=== PATIENT | male | born 1955 ===

== ENCOUNTER 2021-12-24 13:55 | Inpatient (IN) | payer OTHER ==
[~2021-12-24] VITALS: Ht 165.1 cm; Wt 105.3 kg
[2021-12-24 15:38] LABS: COVID AG,FIA SOURCE NASAL SWAB
[2021-12-24 15:38] LABS: BASOPHILS % (AUTO) 0.3 % (0.0-2.0); HEMATOCRIT 40.3 % (41-53); HEMOGLOBIN 13.3 g/dL (13.5-17.5); LYMPHOCYTES # (AUTO) 0.9 K/uL (1.0-4.8); LYMPHOCYTES % (AUTO) 14.8 % (22.0-44.0); MEAN CORPUSCULAR HEMOGLOBIN 31.7 pg (26.0-34.0); MEAN CORPUSCULAR VOLUME 96 fL (80-100); MONOCYTES # (AUTO) 0.4 K/uL (0.1-1.0); MONOCYTES % (AUTO) 5.7 % (2.0-9.0); NEUTROPHILS # (AUTO) 4.8 K/uL (1.8-7.7); NEUTROPHILS % (AUTO) 77.2 % (40.0-70.0); PLATELET COUNT (AUTO) 150 K/uL (150-450); RED CELL DISTRIBUTION WIDTH 13.4 % (11.5-14.5)
[2021-12-24 15:48] LABS: CALCIUM, TOTAL 9.5 mg/dL (8.8-10.5); CHLORIDE 97 mmol/L (98-107); CREATININE 0.77 mg/dL (0.60-1.30); GLUCOSE,RANDOM 124 mg/dL (70-110); POTASSIUM 4.7 mmol/L (3.5-5.1); SODIUM SERUM 142 mmol/L (136-145); UREA NITROGEN, BLOOD 22 mg/dL (7-18)
[2021-12-24 15:51] LABS: INR 0.9 (0.9-1.1); PROTHROMBIN TIME 10.1 SEC (9.4-11.6)
[2021-12-24 15:53] LABS: ALANINE AMINOTRANSFERASE 46 U/L (12-78); ALBUMIN 3.2 g/dL (3.4-5.0); ALKALINE PHOSPHATASE 89 U/L (46-116); ASPARTATE AMINOTRANSFERASE 29 U/L (15-37); BILIRUBIN,TOTAL 0.3 mg/dL (0.1-1.0); TOTAL PROTEIN, SERUM 7.3 g/dL (6.4-8.2)
[2021-12-24 15:54] LABS: B-TYPE NATRIURETIC PEPTIDE 32 pg/mL (0-100)
[2021-12-24 16:05] LABS: INFLUENZA TYPE A NEGATIVE FOR TYPE A (NEGATIVE); INFLUENZA TYPE B NEGATIVE FOR TYPE B (NEGATIVE)
[2021-12-24 16:05] LABS: ANION GAP -4 mmol/L (8-16); GLOMERULAR FILTR. RATE CALC > 60 mL/min (>60)
[2021-12-24 16:07] LABS: CARBON DIOXIDE 49 mmol/L (22-29)
[2021-12-24] MEDS ORDERED: REMDESIVIR 200 MG in SODIUM CHLORIDE 0.9% 250 ML IV ONE (16:30)
[2021-12-24] MEDS ORDERED: DEXTROSE 50%-WATER 25 GM/50 ML SYRINGE IVP PRN (16:30)
[2021-12-24] MEDS ORDERED: INSULIN LISPRO 100 UNITS/ML SQ PRN (16:30)
[2021-12-24 16:52] LABS: D-DIMER 0.69 mg/L FEU (0.00-0.50)
[2021-12-24 17:12] LABS: ABG CARBOXYHEMOGLOBIN 0.7 % (0.0-1.5); ABG HCO3 43.6 mmol/L (22.0-26.0); ABG METHEMOGLOBIN 0.2 % (0.0-1.5); ABG OXYGEN CONTENT 19.5 mL/dL (15.0-23.0); ABG OXYHEMOGLOBIN 97.1 % (94.0-100.0); ABG PCO2 103 mmHg (35-45); ABG PH 7.313 (7.35-7.450); ABG TOTAL HEMOGLOBIN 14.2 G/dL (12.0-18.0); PO2, ARTERIAL BG 111.8 mmHg (79.0-87.0); SOURCE, BLOOD GAS ARTERIAL; TEMPERATURE, FAHRENHEIT, BG 98.2 FAHREN (96.0-98.6)
[2021-12-24] MEDS: DEXAMETHASONE SOD PHOS 4 MG/ML VIAL IVP SCH (17:12)
[2021-12-24] MEDS: LISINOPRIL 10 MG TABLET PO SCH (17:12)
[2021-12-24 17:13] LABS: O2 DEVICE,BLOOD GAS NON REBREATHER (ROOM AIR); SITE, BLOOD GAS LFT BRACHIAL
[2021-12-24 17:17] LABS: C-REACTIVE PROTEIN QUANT 3.26 mg/dL (0.00-0.30)
[2021-12-24] MEDS ORDERED: PRED-729 PO (18:54)
[2021-12-24] MEDS ORDERED: ATOR20TA86 PO (18:54)
[2021-12-24] MEDS ORDERED: INSU100V SQ (18:54)
[2021-12-24] MEDS ORDERED: LISI-893 PO (18:54)
[2021-12-24] MEDS ORDERED: NIRM1TAB5 PO (18:54)
[2021-12-24] MEDS ORDERED: ZINC220C14 PO (18:54)
[2021-12-24] MEDS ORDERED: CHOL25TA4 PO (18:54)
[2021-12-24] MEDS ORDERED: BUME1TAB34 PO (18:54)
[2021-12-24] MEDS ORDERED: DOCU-385 PO (18:54)
[2021-12-24] MEDS ORDERED: MULT-660 PO (18:54)
[2021-12-24] MEDS ORDERED: METO50 PO (18:54)
[2021-12-24] MEDS ORDERED: POLY17PO47 PO (18:54)
[2021-12-24] MEDS ORDERED: SENN8.6T20 PO (18:54)
[2021-12-24] MEDS ORDERED: PANT-31 PO (18:54)
[2021-12-24] MEDS ORDERED: ASCO500 PO (18:54)
[2021-12-24] MEDS ORDERED: QUET25TA PO (18:54)
[2021-12-24] MEDS: DOCUSATE SODIUM 100 MG CAPSULE PO SCH (20:46)
[2021-12-24] MEDS: FAMOTIDINE 20 MG TABLET PO SCH (20:46)
[2021-12-24] MEDS: ATORVASTATIN CALCIUM 20 MG TABLET PO SCH (20:46)
[2021-12-25 00:11] VITALS: BP 129/73
[2021-12-25] MEDS: HEPARIN SODIUM,PORCINE 5,000 UNITS/ML VIAL SQ SCH ×4 (01:02→16:00)
[2021-12-25 06:32] VITALS: BP 134/72
[2021-12-25 08:37] VITALS: BP 159/92
[2021-12-25] MEDS: DEXAMETHASONE SOD PHOS 4 MG/ML VIAL IVP SCH (09:16)
[2021-12-25] MEDS: ASPIRIN 81 MG CHEWABLE TABLET PO SCH (09:17)
[2021-12-25] MEDS: LISINOPRIL 10 MG TABLET PO SCH (09:17)
[2021-12-25] MEDS: FAMOTIDINE 20 MG TABLET PO SCH ×2 (09:17→20:06)
[2021-12-25] MEDS: DOCUSATE SODIUM 100 MG CAPSULE PO SCH ×2 (09:17→20:06)
[2021-12-25 10:58] VITALS: BP 164/87
[2021-12-25 14:46] LABS: ALANINE AMINOTRANSFERASE 37 U/L (12-78); ALBUMIN 3.1 g/dL (3.4-5.0); ALKALINE PHOSPHATASE 79 U/L (46-116); ASPARTATE AMINOTRANSFERASE 24 U/L (15-37); BILIRUBIN,TOTAL 0.2 mg/dL (0.1-1.0); CALCIUM, TOTAL 9.2 mg/dL (8.8-10.5); CHLORIDE 99 mmol/L (98-107); CREATININE 0.73 mg/dL (0.60-1.30); GLUCOSE,RANDOM 173 mg/dL (70-110); POTASSIUM 4.7 mmol/L (3.5-5.1); SODIUM SERUM 142 mmol/L (136-145); TOTAL PROTEIN, SERUM 7.1 g/dL (6.4-8.2); UREA NITROGEN, BLOOD 19 mg/dL (7-18)
[2021-12-25 15:04] VITALS: BP 128/78
[2021-12-25 15:09] LABS: ANION GAP -1 mmol/L (8-16); GLOMERULAR FILTR. RATE CALC > 60 mL/min (>60)
[2021-12-25 15:13] LABS: CARBON DIOXIDE 44 mmol/L (22-29)
[2021-12-25] MEDS ORDERED: TOCILIZUMAB 800 MG in SODIUM CHLORIDE 0.9% 60 ML IV ONE (16:00)
[2021-12-25] MEDS: ACETAMINOPHEN 325 MG TABLET PO PRN (17:05)
[2021-12-25] MEDS ORDERED: SODIUM CHLORIDE 0.9% 250 ML IV ONE (17:15)
[2021-12-25] MEDS: REMDESIVIR 100 MG in SODIUM CHLORIDE 0.9% 250 ML IV SCH (17:36)
[2021-12-25] MEDS: ATORVASTATIN CALCIUM 20 MG TABLET PO SCH (20:06)
[2021-12-25] MEDS: MELATONIN 3 MG TABLET PO PRN (21:51)
[2021-12-25 23:40] VITALS: BP 139/86
[2021-12-26 07:25] VITALS: BP 145/92
[2021-12-26] MEDS: HEPARIN SODIUM,PORCINE 5,000 UNITS/ML VIAL SQ SCH ×4 (08:00→16:00)
[2021-12-26 10:55] VITALS: BP 165/98
[2021-12-26 11:32] LABS: ALANINE AMINOTRANSFERASE 37 U/L (12-78); ALBUMIN 3.2 g/dL (3.4-5.0); ALKALINE PHOSPHATASE 72 U/L (46-116); ANION GAP 2 mmol/L (8-16); ASPARTATE AMINOTRANSFERASE 22 U/L (15-37); BILIRUBIN,TOTAL 0.2 mg/dL (0.1-1.0); CALCIUM, TOTAL 9.5 mg/dL (8.8-10.5); CHLORIDE 101 mmol/L (98-107); CREATININE 0.76 mg/dL (0.60-1.30); GLUCOSE,RANDOM 151 mg/dL (70-110); POTASSIUM 4.6 mmol/L (3.5-5.1); SODIUM SERUM 146 mmol/L (136-145); UREA NITROGEN, BLOOD 21 mg/dL (7-18)
[2021-12-26] MEDS: LISINOPRIL 10 MG TABLET PO SCH (11:33)
[2021-12-26] MEDS: DEXAMETHASONE SOD PHOS 4 MG/ML VIAL IVP SCH (11:33)
[2021-12-26] MEDS: ASPIRIN 81 MG CHEWABLE TABLET PO SCH (11:34)
[2021-12-26] MEDS: FAMOTIDINE 20 MG TABLET PO SCH ×2 (11:34→20:06)
[2021-12-26] MEDS: DOCUSATE SODIUM 100 MG CAPSULE PO SCH ×2 (11:34→20:06)
[2021-12-26 11:45] LABS: CARBON DIOXIDE 43 mmol/L (22-29); GLOMERULAR FILTR. RATE CALC > 60 mL/min (>60)
[2021-12-26 15:08] VITALS: BP 141/82
[2021-12-26] MEDS: REMDESIVIR 100 MG in SODIUM CHLORIDE 0.9% 250 ML IV SCH (18:22)
[2021-12-26 19:10] VITALS: BP 151/84
[2021-12-26] MEDS: ATORVASTATIN CALCIUM 20 MG TABLET PO SCH (20:06)
[2021-12-26] MEDS: MELATONIN 3 MG TABLET PO PRN (20:22)
[2021-12-26 23:22] VITALS: BP 137/74
[2021-12-27 03:30] VITALS: BP 151/94
[2021-12-27 06:37] LABS: ALANINE AMINOTRANSFERASE 34 U/L (12-78); ALBUMIN 3.2 g/dL (3.4-5.0); ALKALINE PHOSPHATASE 69 U/L (46-116); ANION GAP 4 mmol/L (8-16); ASPARTATE AMINOTRANSFERASE 24 U/L (15-37); BILIRUBIN,TOTAL 0.2 mg/dL (0.1-1.0); CALCIUM, TOTAL 9.3 mg/dL (8.8-10.5); CHLORIDE 99 mmol/L (98-107); CREATININE 0.74 mg/dL (0.60-1.30); GLUCOSE,RANDOM 111 mg/dL (70-110); POTASSIUM 4.4 mmol/L (3.5-5.1); SODIUM SERUM 144 mmol/L (136-145); TOTAL PROTEIN, SERUM 7.1 g/dL (6.4-8.2); UREA NITROGEN, BLOOD 24 mg/dL (7-18)
[2021-12-27 07:33] LABS: CARBON DIOXIDE 41 mmol/L (22-29); GLOMERULAR FILTR. RATE CALC > 60 mL/min (>60)
[2021-12-27 08:52] VITALS: BP 141/63
[2021-12-27] MEDS: FAMOTIDINE 20 MG TABLET PO SCH ×2 (10:52→20:36)
[2021-12-27] MEDS: HEPARIN SODIUM,PORCINE 5,000 UNITS/ML VIAL SQ SCH ×3 (10:52→16:38)
[2021-12-27] MEDS: DEXAMETHASONE SOD PHOS 4 MG/ML VIAL IVP SCH (10:52)
[2021-12-27] MEDS: LISINOPRIL 10 MG TABLET PO SCH (10:55)
[2021-12-27] MEDS: DOCUSATE SODIUM 100 MG CAPSULE PO SCH ×2 (10:55→20:35)
[2021-12-27] MEDS: ASPIRIN 81 MG CHEWABLE TABLET PO SCH (10:55)
[2021-12-27] MEDS: QUEtiapine FUMARATE 25 MG TABLET PO SCH ×2 (11:30→20:36)
[2021-12-27 12:45] VITALS: BP 160/91
[2021-12-27 16:19] VITALS: BP 148/72
[2021-12-27] MEDS: REMDESIVIR 100 MG in SODIUM CHLORIDE 0.9% 250 ML IV SCH (18:39)
[2021-12-27 19:35] VITALS: BP 144/84
[2021-12-27] MEDS: ATORVASTATIN CALCIUM 20 MG TABLET PO SCH (20:35)
[2021-12-27] MEDS: MELATONIN 3 MG TABLET PO PRN (22:47)
[2021-12-27] MEDS: ACETAMINOPHEN 325 MG TABLET PO PRN (22:47)
[2021-12-28] VITALS (7 sets, daily range): BP systolic 97–150; BP diastolic 67–111
[2021-12-28] MEDS: HEPARIN SODIUM,PORCINE 5,000 UNITS/ML VIAL SQ SCH ×4 (08:00→23:50)
[2021-12-28] MEDS: ASPIRIN 81 MG CHEWABLE TABLET PO SCH (09:00)
[2021-12-28] MEDS: DEXAMETHASONE SOD PHOS 4 MG/ML VIAL IVP SCH (09:00)
[2021-12-28] MEDS: QUEtiapine FUMARATE 25 MG TABLET PO SCH ×2 (09:00→21:03)
[2021-12-28] MEDS: DOCUSATE SODIUM 100 MG CAPSULE PO SCH ×2 (09:00→21:03)
[2021-12-28] MEDS: LISINOPRIL 10 MG TABLET PO SCH (09:00)
[2021-12-28] MEDS: FAMOTIDINE 20 MG TABLET PO SCH ×2 (09:00→21:03)
[2021-12-28 09:38] LABS: BASOPHILS % (AUTO) 0.9 % (0.0-2.0); EOSINOPHILS % (AUTO) 0.8 % (1.0-6.0); HEMATOCRIT 43.9 % (41-53); HEMOGLOBIN 14.3 g/dL (13.5-17.5); LYMPHOCYTES # (AUTO) 1.9 K/uL (1.0-4.8); LYMPHOCYTES % (AUTO) 32.4 % (22.0-44.0); MEAN CORPUSCULAR HEMOGLOBIN 31.3 pg (26.0-34.0); MEAN CORPUSCULAR HGB CONC 32.5 G/dL (31.0-37.0); MEAN CORPUSCULAR VOLUME 96 fL (80-100); MONOCYTES # (AUTO) 0.7 K/uL (0.1-1.0); MONOCYTES % (AUTO) 12.9 % (2.0-9.0); NEUTROPHILS # (AUTO) 3.1 K/uL (1.8-7.7); PLATELET COUNT (AUTO) 174 K/uL (150-450); RED BLOOD CELL COUNT(AUTO) 4.56 MIL/uL (4.50-5.90); RED CELL DISTRIBUTION WIDTH 13.5 % (11.5-14.5)
[2021-12-28] MEDS ORDERED: 0.9% SODIUM CHLORIDE 5 ML NEB SOLUTION NEB ONE (09:52)
[2021-12-28 09:54] LABS: ALANINE AMINOTRANSFERASE 47 U/L (12-78); ALBUMIN 3.5 g/dL (3.4-5.0); ALKALINE PHOSPHATASE 70 U/L (46-116); ANION GAP 3 mmol/L (8-16); ASPARTATE AMINOTRANSFERASE 33 U/L (15-37); BILIRUBIN,TOTAL 0.2 mg/dL (0.1-1.0); CALCIUM, TOTAL 9.3 mg/dL (8.8-10.5); CARBON DIOXIDE 40 mmol/L (22-29); CHLORIDE 103 mmol/L (98-107); CREATININE 0.86 mg/dL (0.60-1.30); GLUCOSE,RANDOM 143 mg/dL (70-110); POTASSIUM 4.3 mmol/L (3.5-5.1); SODIUM SERUM 146 mmol/L (136-145); TOTAL PROTEIN, SERUM 7.1 g/dL (6.4-8.2); UREA NITROGEN, BLOOD 25 mg/dL (7-18)
[2021-12-28 09:57] LABS: GLOMERULAR FILTR. RATE CALC > 60 mL/min (>60)
[2021-12-28] MEDS: ACETAMINOPHEN 325 MG TABLET PO PRN ×2 (12:01→23:39)
[2021-12-28] MEDS: REMDESIVIR 100 MG in SODIUM CHLORIDE 0.9% 250 ML IV SCH (18:04)
[2021-12-28] MEDS: ATORVASTATIN CALCIUM 20 MG TABLET PO SCH (21:03)
[2021-12-28] MEDS: MELATONIN 3 MG TABLET PO PRN (23:38)
[2021-12-29 00:05] VITALS: BP 142/81
[2021-12-29 04:00] VITALS: BP 142/82
[2021-12-29 08:25] VITALS: BP 160/82
[2021-12-29] MEDS: LISINOPRIL 10 MG TABLET PO SCH (08:40)
[2021-12-29] MEDS: ASPIRIN 81 MG CHEWABLE TABLET PO SCH (08:40)
[2021-12-29] MEDS: FAMOTIDINE 20 MG TABLET PO SCH ×2 (08:41→21:05)
[2021-12-29] MEDS: DOCUSATE SODIUM 100 MG CAPSULE PO SCH ×2 (08:41→21:00)
[2021-12-29] MEDS: QUEtiapine FUMARATE 25 MG TABLET PO SCH ×2 (08:41→21:05)
[2021-12-29] MEDS: HEPARIN SODIUM,PORCINE 5,000 UNITS/ML VIAL SQ SCH ×3 (08:41→23:26)
[2021-12-29] MEDS: DEXAMETHASONE SOD PHOS 4 MG/ML VIAL IVP SCH (09:00)
[2021-12-29 11:46] VITALS: BP 127/63
[2021-12-29] MEDS: DEXAMETHASONE 4 MG TABLET PO SCH (11:58)
[2021-12-29 20:20] VITALS: BP 143/74
[2021-12-29] MEDS: ATORVASTATIN CALCIUM 20 MG TABLET PO SCH (21:05)
[2021-12-29] MEDS: MELATONIN 3 MG TABLET PO PRN (21:26)
[2021-12-29] MEDS: ACETAMINOPHEN 325 MG TABLET PO PRN (21:26)
[2021-12-30] MEDS: HEPARIN SODIUM,PORCINE 5,000 UNITS/ML VIAL SQ SCH ×4 (08:00→23:19)
[2021-12-30] MEDS: QUEtiapine FUMARATE 25 MG TABLET PO SCH ×2 (08:39→20:36)
[2021-12-30] MEDS: DEXAMETHASONE 4 MG TABLET PO SCH (08:39)
[2021-12-30] MEDS: DOCUSATE SODIUM 100 MG CAPSULE PO SCH ×2 (08:39→20:35)
[2021-12-30] MEDS: ASPIRIN 81 MG CHEWABLE TABLET PO SCH (08:39)
[2021-12-30] MEDS: FAMOTIDINE 20 MG TABLET PO SCH ×2 (08:39→20:36)
[2021-12-30] MEDS: LISINOPRIL 10 MG TABLET PO SCH (08:40)
[2021-12-30] MEDS ORDERED: 0.9% SODIUM CHLORIDE 5 ML NEB SOLUTION NEB ONE ×2 (13:52→21:02)
[2021-12-30] MEDS: ALBUTEROL SULFATE 2.5 MG/0.5 ML NEB SOLUTION NEB PRN ×2 (14:06→21:05)
[2021-12-30 14:35] VITALS: BP 98/90
[2021-12-30 16:39] VITALS: BP 141/65
[2021-12-30 19:44] VITALS: BP 134/75
[2021-12-30] MEDS: ATORVASTATIN CALCIUM 20 MG TABLET PO SCH (20:36)
[2021-12-30] MEDS: ACETAMINOPHEN 325 MG TABLET PO PRN (20:37)
[2021-12-30] MEDS: MELATONIN 3 MG TABLET PO PRN (20:39)
[2021-12-31 05:39] VITALS: BP 127/67
[2021-12-31] MEDS: HEPARIN SODIUM,PORCINE 5,000 UNITS/ML VIAL SQ SCH ×3 (08:00→15:48)
[2021-12-31] MEDS: DOCUSATE SODIUM 100 MG CAPSULE PO SCH (09:00)
[2021-12-31] MEDS: LISINOPRIL 10 MG TABLET PO SCH (09:23)
[2021-12-31] MEDS: QUEtiapine FUMARATE 25 MG TABLET PO SCH (09:24)
[2021-12-31] MEDS: ASPIRIN 81 MG CHEWABLE TABLET PO SCH (09:24)
[2021-12-31] MEDS: FAMOTIDINE 20 MG TABLET PO SCH (09:24)
[2021-12-31] MEDS: DEXAMETHASONE 4 MG TABLET PO SCH (09:25)
[2021-12-31 15:44] VITALS: BP 144/85
== END 2021-12-31 16:20 | DRG 137 ==
LOC: EMS 14:02 → 5N 20:57 → 5S 12-26 00:10 → 6N 12-30 16:33
PROVIDERS: ADMIT Internal Medicine; ATTEND Internal Medicine
PROC: XW033E5 Introduction of Remdesivir Anti-infective into Peripheral Vein, Percutaneous Approach, New Technology Group 5 (ICD-10-PCS; principal; 2021-12-24)
PROC: XW033H5 Introduction of Tocilizumab into Peripheral Vein, Percutaneous Approach, New Technology Group 5 (ICD-10-PCS; 2021-12-25)
PROC: 5A0955A Assistance with Respiratory Ventilation, Greater than 96 Consecutive Hours, High Flow/Velocity Cannula (ICD-10-PCS; 2021-12-25)
DX: U07.1 COVID-19 (principal); J96.21 Acute and chronic respiratory failure with hypoxia; J12.82 Pneumonia due to coronavirus disease 2019; I50.9 Heart failure, unspecified; I11.0 Hypertensive heart disease with heart failure; J96.22 Acute and chronic respiratory failure with hypercapnia; G47.33 Obstructive sleep apnea (adult) (pediatric); I71.43 Infrarenal abdominal aortic aneurysm, without rupture; E66.01 Morbid (severe) obesity due to excess calories; J44.1 Chronic obstructive pulmonary disease with (acute) exacerbation; K21.9 Gastro-esophageal reflux disease without esophagitis; F41.9 Anxiety disorder, unspecified; E78.5 Hyperlipidemia, unspecified; E11.9 Type 2 diabetes mellitus without complications; Z99.81 Dependence on supplemental oxygen; Z68.38 Body mass index [BMI] 38.0-38.9, adult; I69.351 Hemiplegia and hemiparesis following cerebral infarction affecting right dominant side; Z79.4 Long term (current) use of insulin; Z91.018 Allergy to other foods; Z91.199 Patient's noncompliance with other medical treatment and regimen due to unspecified reason; Z87.891 Personal history of nicotine dependence; Z79.82 Long term (current) use of aspirin
CPT/HCPCS: 36600; 71045; 80053; 82805; 83880; 84484; 85025; 85379; 85610; 85730; 86140; 87081; 87481; 87804; 93005; 93306; 93971; 94640; 99285; J1100; J1644; J7050; J8540; Q9967; 36415-L1; 36415-TC; J7613